=== PATIENT | male | born 1955 | race Two or more races ===

== ENCOUNTER 2024-03-19 09:52 | Emergency (ER) | payer MEDICAID ==
[~2024-03-19] VITALS: Ht 177.8 cm; Wt 86.4 kg
[2024-03-19 09:58] VITALS: TEMP 98.6
[2024-03-19] MEDS ORDERED: PRAZ1 PO (09:58)
[2024-03-19] MEDS ORDERED: BUPR1TAB46 SL (09:58)
[2024-03-19] MEDS ORDERED: IBUP-1492 PO (10:25)
[2024-03-19] MEDS ORDERED: LIDO700A15 TP (10:25)
[2024-03-19] MEDS ORDERED: ACET-3385 PO (10:25)
[2024-03-19] MEDS: ACETAMINOPHEN 500 MG TABLET PO ONE (10:35)
[2024-03-19] MEDS: LIDOCAINE 5% TRANSDERMAL PATCH TD ONE (10:35)
[2024-03-19] MEDS: KETOROLAC TROMETHAMINE 30 MG/ML VIAL IM ONE (10:35)
[2024-03-19 11:12] VITALS: BP 118/74; PULSE 86; RESP 16
== END 2024-03-19 11:33 | disposition home or self-care (01) ==
LOC: EMS 09:55
DX: S13.4XXA Sprain of ligaments of cervical spine, initial encounter (principal); Z98.890 Other specified postprocedural states; X58.XXXA Exposure to other specified factors, initial encounter; Y93.89 Activity, other specified; Y92.89 Other specified places as the place of occurrence of the external cause; Y99.8 Other external cause status
CPT/HCPCS: 99283; 96372; J1885

== ENCOUNTER → 2024-07-15 | Emergency (ER) | payer MEDICAID, OTHER ==
[~2024-07-15] VITALS: Ht 172.7 cm; Wt 81.3 kg
[~2024-07-15] MED LIST: ACET-3385 PO; BACL10TA PO; BUPR1TAB46 SL; HYDR25TA2 PO; IBUP-1492 PO; LIDO700A15 TP; POLY17PO52 PO; PRAZ1 PO; SENN-376 PO; TERA5CAP PO
[2024-07-15 10:53] VITALS: TEMP 97.7
[2024-07-15 11:35] LABS: EOSINOPHILS % (AUTO) 3.2 % (1.0-6.0); HEMATOCRIT 41.6 % (41-53); LYMPHOCYTES # (AUTO) 1.8 K/uL (1.0-4.8); LYMPHOCYTES % (AUTO) 27.3 % (22.0-44.0); MEAN CORPUSCULAR HEMOGLOBIN 30.1 pg (26.0-34.0); MEAN CORPUSCULAR HGB CONC 33.5 G/dL (31.0-37.0); MEAN CORPUSCULAR VOLUME 90 fL (80-100); MONOCYTES # (AUTO) 0.5 K/uL (0.1-1.0); MONOCYTES % (AUTO) 7.9 % (2.0-9.0); NEUTROPHILS % (AUTO) 60.6 % (40.0-70.0); PLATELET COUNT (AUTO) 169 K/uL (150-450); RED BLOOD CELL COUNT(AUTO) 4.64 MIL/uL (4.50-5.90); WHITE BLOOD COUNT (AUTO) 6.6 K/uL (4.5-11.0)
[2024-07-15 11:40] LABS: PROTHROMBIN TIME 10.4 SEC (9.4-11.6)
[2024-07-15 11:42] LABS: ANION GAP 8 mmol/L (8-16); CARBON DIOXIDE 27 mmol/L (22-29); CHLORIDE 101 mmol/L (98-107); CREATININE 0.63 mg/dL (0.60-1.30); GLUCOSE,RANDOM 97 mg/dL (70-110); POTASSIUM 4.2 mmol/L (3.5-5.1); SODIUM SERUM 136 mmol/L (136-145); UREA NITROGEN, BLOOD 12 mg/dL (7-18)
[2024-07-15 11:43] LABS: CALCIUM, TOTAL 8.7 mg/dL (8.8-10.5); GLOMERULAR FILTR. RATE CALC > 60 mL/min (>60)
[2024-07-15 11:48] LABS: APPEARANCE,URINE CLEAR (CLEAR); BILIRUBIN,URINE NEGATIVE (NEGATIVE); COLOR,URINE COLORLESS (YELLOW); GLUCOSE, URINE (UA) NEGATIVE (NEGATIVE); KETONES,URINE NEGATIVE (NEGATIVE); LEUKOCYTE ESTERASE ,URINE NEGATIVE (NEGATIVE); NITRATE,URINE NEGATIVE (NEGATIVE); OCCULT BLOOD,URINE NEGATIVE (NEGATIVE); PROTEIN,URINE NEGATIVE (NEGATIVE); SPECIFIC GRAVITIY, URINE 1.009 (1.003-1.030); UROBILINOGEN,URINE <=1.0 mg/dL (<=1.0)
[2024-07-15 11:48] LABS: B-TYPE NATRIURETIC PEPTIDE 67 pg/mL (0-100)
[2024-07-15 11:49] LABS: TROPONIN I-HIGH SENSITIVITY 4 ng/L (<76)
[2024-07-15 12:09] LABS: ALANINE AMINOTRANSFERASE 14 U/L (12-78); ALBUMIN 3.6 g/dL (3.4-5.0); ALKALINE PHOSPHATASE 79 U/L (46-116); ASPARTATE AMINOTRANSFERASE 18 U/L (15-37); BILIRUBIN,TOTAL 1.9 mg/dL (0.1-1.0); CREATINE KINASE, TOTAL ONLY 98 U/L (39-308); TOTAL PROTEIN, SERUM 7.1 g/dL (6.4-8.2)
[2024-07-15 13:27] VITALS: BP 131/74; PULSE 46; RESP 18
== END | disposition still patient (30) ==
LOC: EMS 10:40
DX: R00.1 Bradycardia, unspecified (principal); Z98.890 Other specified postprocedural states
CPT/HCPCS: 71045; 80053; 81003; 82550; 83880; 84484; 85025; 85610; 85730; 93005; 99285; 36415-L1; 36415-TC